=== PATIENT | male | born 1985 | race African-American/Black ===

== ENCOUNTER 2018-12-11 13:21 | Emergency (ER) | payer MEDICAID ==
[2018-12-11] MEDS ORDERED: Proparacaine 0.5% Ophth Soln 15 ML Bottle EYELF PRN (13:50)
[2018-12-11] MEDS ORDERED: Fluorescein 1 MG Ophth Strip EYELF ONE (13:52)
--- NOTE | 2018-12-11 13:58 | EDM.PDOC ---
ED HPI GENERAL MEDICAL PROBLEM - General Chief Complaint: Eye Problems Stated Complaint: SWOLLEN AND RED R EYE Time Seen by Provider: 12/11/18 13:45 Source of Information: Reports: Patient - History of Present Illness INITIAL COMMENTS - FREE TEXT/NARRATIVE: Patient comes into the emergency department complaining of right eye discomfort. Patient states his eye discomfort started this morning after he woke up. He does have a history of conjunctivitis. He states that his eye does feel similar to previous instances however he has not noticed any crusting formation which is what is normally had in the past. He states he's had significant amount of clear eye drainage with discomfort and pain. Patient denies any recent fever or interactions with other individuals with illnesses. Onset: Sudden Severity: Mild Improves with: Reports: None Worsens with: Reports: None Associated Symptoms: Reports: No Other Symptoms - Related Data Allergies Allergy/AdvReac Type Severity Reaction Status Date / Time No Known Allergies Allergy Verified 12/11/18 13:52 Home Meds: Home Meds . [No Known Home Meds] 12/11/18 [History] ED ROS GENERAL - Review of Systems Review Of Systems: ROS reveals no pertinent complaints other than HPI. Constitutional: Reports: No Symptoms HEENT: Reports: Eye Discharge, Eye Pain Respiratory: Reports: No Symptoms Cardiovascular: Reports: No Symptoms Endocrine: Reports: No Symptoms Musculoskeletal: Reports: No Symptoms Skin: Reports: No Symptoms Neurological: Reports: No Symptoms ED EXAM, GENERAL - Physical Exam Exam: See Below Exam Limited By: No Limitations General Appearance: Alert, WD/WN, No Apparent Distress Eye Exam: Left Eye: Other (left: 20/20 right: 20/800), Bilateral Eye: PERRL Ears: Normal External Exam, Normal Canal, Hearing Grossly Normal Nose: Normal Inspection, Normal Mucosa, No Blood Throat/Mouth: Normal Inspection, Normal Lips, Normal Teeth Head: Atraumatic, Normocephalic Neck: Normal Inspection, Supple, Non-Tender, Full Range of Motion ED GENERAL MEDICAL PROCEDURES - Additional/Other Procedure(s) Other (Free Text) Procedure(s): flourocein eye exam under UV lights. corneal abrasion noted over the pupil of the right eye. No foreign body found. No complications noted. Course - Vital Signs Last Recorded V/S: Last Vital Signs Temp 36.4 C 12/11/18 13:52 Pulse 77 12/11/18 13:52 Resp 14 12/11/18 13:52 BP 141/96 H 12/11/18 13:52 Pulse Ox 97 12/11/18 13:52 - Orders/Labs/Meds Orders: Active Orders 24 hr Category Date Time Status Proparacaine [Proparacaine 0.5% Ophth Soln] Med 12/11/18 13:50 Active 1 ml EYELF ASDIRECTED PRN Medication Orders Proparacaine HCl (Proparacaine 0.5% Ophth Soln) 1 ml EYELF ASDIRECTED PRN PRN Reason: Other Last Admin: 12/11/18 14:06 Dose: 1 drop Meds: Medications Generic Name Dose Route Start Last Admin Trade Name Freq PRN Reason Stop Dose Admin Proparacaine HCl 1 ml 12/11/18 13:50 12/11/18 14:06 Proparacaine 0.5% Ophth Soln EYELF 1 drop ASDIRECTED PRN Administration Other Discontinued Medications Generic Name Dose Route Start Last Admin Trade Name Freq PRN Reason Stop Dose Admin Fluorescein Sodium 1 mg 12/11/18 13:52 12/11/18 14:06 Ful-Kathryn EYELF 12/11/18 13:53 1 mg ONETIME ONE Administration Departure - Departure Time of Disposition: 14:10 Disposition: Home, Self-Care 01 Condition: Good Clinical Impression: Corneal abrasion Qualifiers: Encounter type: initial encounter Laterality: right Qualified Code(s): S05.01XA - Injury of conjunctiva and corneal abrasion without foreign body, right eye, initial encounter - Discharge Information *PRESCRIPTION DRUG MONITORING PROGRAM REVIEWED*: Not Applicable *COPY OF PRESCRIPTION DRUG MONITORING REPORT IN PATIENT GIRISH: Not Applicable Instructions: Corneal Abrasion, Zbud-ay-Cabb, Erythromycin eye ointment Referrals: PCP,None [Primary Care Provider] - Forms: ED Department Discharge Additional Instructions: 1. 1 eye drop in right eye every 4 hours for 5 days 2. Wear sunglasses when outdoors 3. Do not wear patch over the affected eye 4. And use saline drops and I if it feels irritated however do not use saline within one hour putting any antibiotic drops 5. Follow-up with eye doctor as needed or if vision worsens 6. Activity and diet as tolerated 7. Call with any questions or concerns - My Orders Last 24 Hours: My Active Orders 12/11/18 13:50 Proparacaine [Proparacaine 0.5% Ophth Soln] 1 ml EYELF ASDIRECTED PRN - Assessment/Plan Last 24 Hours: My Active Orders 12/11/18 13:50 Proparacaine [Proparacaine 0.5% Ophth Soln] 1 ml EYELF ASDIRECTED PRN Assessment:: 1. right eye injury Plan: 1. Proparacaine in the eye to help with the discomfort 2. Ful-kathryn eye exam with UV flight 3. Antibiotic eye drops given for corneal abrasion of the right eye 4. Education regarding eye drops, activity, diet, and follow up care provided. 5. All questions and concerns addressed prior to discharge.
[2018-12-11] MEDS ORDERED: Take Home: Gentamicin 0.3% Ophth Soln 5 ML, 1 Bottle Pack EYEBOTH ONE (14:07)
== END 2018-12-11 14:16 | disposition home or self-care (01) ==
LOC: VM.ED 13:21
DX: S05.01XA Injury of conjunctiva and corneal abrasion without foreign body, right eye, initial encounter (principal); X58.XXXA Exposure to other specified factors, initial encounter
CPT/HCPCS: 99283; A9270

== ENCOUNTER 2022-07-29 12:56 | Emergency (ER) | payer MEDICAID, OTHER ==
[2022-07-29] MEDS ORDERED: Aspirin 81 MG Tab.Chew PO ONE (13:17)
[2022-07-29 13:47] LABS: ESTIMATED GFR 101 mL/min (>=60)
[2022-07-29 14:28] LABS: ANION GAP 11.6 mmol/L (5-15)
== END 2022-07-29 14:55 | disposition home or self-care (01) ==
LOC: VM.ED 12:56
DX: R07.89 Other chest pain (principal); I10 Essential (primary) hypertension; Z79.899 Other long term (current) drug therapy
CPT/HCPCS: 36415; 71046; 80051; 80053; 82550; 83615; 84450; 84484; 85025; 86140; 93005; 93010; 99285; A9270-GY